=== PATIENT | female | born 1995 | race Two or more races ===

== ENCOUNTER 2018-08-12 13:50 | Observation (INO) | payer SELFPAY ==
[~2018-08-12] VITALS: Ht 157.5 cm; Wt 67.1 kg
[2018-08-12] MEDS ORDERED: PREN-96 PO (14:40)
[2018-08-12] MEDS ORDERED: FERR-20 PO (14:40)
[2018-08-12] MEDS ORDERED: LACTATED RINGER'S 1,000 ML IV SCH (15:03)
[2018-08-12] MEDS: TERBUTALINE SULFATE 1 MG/ML 1ML VIAL SC PRN ×2 (15:33→16:53)
[2018-08-12] MEDS ORDERED: LACTATED RINGER'S 1,000 ML IV ONE (15:45)
[2018-08-12 17:05] LABS: Alcohol, Urine < 3.0 mg/dL (0-5); Amphetamine Screen, Urine NEGATIVE (NEGATIVE); Barbiturate Scree,Urine NEGATIVE (NEGATIVE); Benzodiazephine Screen, Urine NEGATIVE (NEGATIVE); Cannabinoid Screen, Urine NEGATIVE (NEGATIVE); Cocaine Screen, Urine NEGATIVE (NEGATIVE); Opiate Scree,Urine NEGATIVE (NEGATIVE); Phencyclidine Screen, Urine NEGATIVE (NEGATIVE)
== END 2018-08-12 19:00 | disposition home or self-care (01) | DRG 833 ==
LOC: LDRP 13:50
PROVIDERS: ADMIT Specialist; ATTEND Specialist
DX: O26.892 Other specified pregnancy related conditions, second trimester (principal); N89.8 Other specified noninflammatory disorders of vagina; Z3A.27 27 weeks gestation of pregnancy
CPT/HCPCS: 59025; 76815; 80307; 81002; 96372; G0378; J3105; 96361

== ENCOUNTER 2018-08-26 10:30 | Observation (INO) | payer SELFPAY ==
[~2018-08-26 10:30] MED LIST: FERR-20 PO; PREN-96 PO
[2018-08-26] MEDS ORDERED: NIF10C GT (11:20)
== END 2018-08-26 11:25 | disposition home or self-care (01) | DRG 833 ==
LOC: LDRP 10:30
PROVIDERS: ADMIT Specialist; ATTEND Specialist
DX: O60.03 Preterm labor without delivery, third trimester (principal); Z3A.29 29 weeks gestation of pregnancy
CPT/HCPCS: 59025; 81002; G0378

== ENCOUNTER 2018-09-02 10:30 | Observation (INO) | payer OTHER ==
[~2018-09-02 10:30] MED LIST changes: +NIF10C GT
== END 2018-09-02 11:35 | disposition home or self-care (01) | DRG 833 ==
LOC: LDRP 10:30
PROVIDERS: ADMIT Specialist; ATTEND Specialist
DX: O60.03 Preterm labor without delivery, third trimester (principal); Z3A.30 30 weeks gestation of pregnancy
CPT/HCPCS: 59025; 81002; G0378

== ENCOUNTER 2018-09-09 10:30 | Observation (INO) | payer MEDICAID, OTHER | END 2018-09-09 11:25 | disposition home or self-care (01) | DRG 563 | LOC: LDRP 10:30 | PROVIDERS: ADMIT Obstetrics & Gynecology; ATTEND Obstetrics & Gynecology | DX: O60.03 Preterm labor without delivery, third trimester (principal); Z3A.31 31 weeks gestation of pregnancy | CPT/HCPCS: 59025; 81002; G0378 ==

== ENCOUNTER 2018-09-15 11:50 | Observation (INO) | payer MEDICAID | END 2018-09-15 12:25 | disposition home or self-care (01) | DRG 563 | LOC: LDRP 11:50 | PROVIDERS: ADMIT Specialist; ATTEND Specialist | DX: O60.03 Preterm labor without delivery, third trimester (principal); Z3A.32 32 weeks gestation of pregnancy | CPT/HCPCS: 59025; 81002; G0378 ==

== ENCOUNTER 2018-09-22 10:35 | Observation (INO) | payer MEDICAID ==
[~2018-09-22] VITALS: Ht 157.5 cm; Wt 67.1 kg
[2018-09-22] MEDS ORDERED: TERBUTALINE SULFATE 1 MG/ML 1ML VIAL SC ONE (11:19)
[2018-09-23] MEDS ORDERED: TERBUTALINE SULFATE 1 MG/ML 1ML VIAL SC ONE (10:00)
== END 2018-09-22 13:05 | disposition home or self-care (01) | DRG 563 ==
LOC: LDRP 10:35
PROVIDERS: ADMIT Obstetrics & Gynecology; ATTEND Obstetrics & Gynecology
DX: O60.03 Preterm labor without delivery, third trimester (principal); O26.893 Other specified pregnancy related conditions, third trimester; R42 Dizziness and giddiness; R51 Headache; Z3A.33 33 weeks gestation of pregnancy
CPT/HCPCS: 59025; 81002; 96372; G0378; J3105

== ENCOUNTER 2023-04-12 20:15 | Emergency (ER) | payer MEDICAID ==
[~2023-04-12] VITALS: Ht 157.5 cm; Wt 72.9 kg
[~2023-04-12 20:15] MED LIST changes: -FERR-20 PO; +FERR325T24 PO
[2023-04-12 20:56] LABS: Urine Bacteria NONE SEEN /hpf (None Seen); Urine Blood Negative /uL (Negative); Urine Mucus FEW (None Seen); Urine Specific Gravity 1.027 (1.001-1.035); Urine WBC 2 /hpf (0 - 5)
[2023-04-12 21:35] LABS: Basophils # (auto) 0.1 10 ^3/uL (0-0.2); Eosinophils # (auto) 0.2 10 ^3/uL (0-0.8); Eosinophils % (auto) 1.3 % (0.0-7.0); Hemoglobin 11.9 g/dL (12.2-16.2); Lymphocytes # (auto) 4.1 10 ^3/uL (0.4-5.4); Lymphocytes % (auto) 32.7 % (10.0-50.0); Mean Corpuscular Hemoglobin 27.4 pg (28.0-32.0); Mean Corpuscular Volume 82.9 fL (80.0-100.0); Monocytes # (auto) 0.7 10 ^3/uL (0-1.3); Monocytes % (auto) 5.3 % (0.0-12.0); Neutrophils # (auto) 7.4 10 ^3/uL (1.6-8.6); Neutrophils % (auto) 59.7 % (37.0-80.0); Nucleated Red Blood Cells % 0.1 %; Red Blood Cells 4.34 10^6/uL (4.0-5.20); Red Cell Distribution Width 15.7 % (11.8-14.3); White Blood Cell 12.4 10^3/uL (4.4-10.8)
[2023-04-12 21:48] LABS: Albumin 3.5 g/dL (3.4-5.0); Calcium 8.8 mg/dL (8.5-10.1); Potassium 3.8 mmol/L (3.5-5.1)
[2023-04-12 21:51] LABS: Bilirubin, Total 0.2 mg/dL (0.2-1.0); Total Protein 7.3 g/dL (6.4-8.2)
[2023-04-13 00:30] VITALS: BP 123/66
== END 2023-04-13 01:16 | disposition home or self-care (01) ==
LOC: ER 20:15
DX: O02.81 Inappropriate change in quantitative human chorionic gonadotropin (hCG) in early pregnancy (principal); O99.011 Anemia complicating pregnancy, first trimester; O99.111 Other diseases of the blood and blood-forming organs and certain disorders involving the immune mechanism complicating pregnancy, first trimester; D72.829 Elevated white blood cell count, unspecified; Z3A.01 Less than 8 weeks gestation of pregnancy
CPT/HCPCS: 36415; 80053; 81001; 81025; 84702; 85025

== ENCOUNTER → 2023-05-28 | Outpatient (CLI) | payer MEDICAID ==
[2023-05-28 10:46] LABS: Basophils # (auto) 0.1 10 ^3/uL (0-0.2); Basophils % (auto) 0.7 % (0.0-2.0); Eosinophils # (auto) 0.1 10 ^3/uL (0-0.8); Eosinophils % (auto) 0.9 % (0.0-7.0); Hematocrit 35.3 % (36.0-46.0); Hemoglobin 11.6 g/dL (12.2-16.2); Lymphocytes # (auto) 2.9 10 ^3/uL (0.4-5.4); Lymphocytes % (auto) 35.4 % (10.0-50.0); Mean Corpuscular Hemoglobin 27.9 pg (28.0-32.0); Mean Corpuscular Hgb Conc. 32.8 g/dL (32.0-36.0); Monocytes # (auto) 0.6 10 ^3/uL (0-1.3); Monocytes % (auto) 7.5 % (0.0-12.0); Neutrophils # (auto) 4.5 10 ^3/uL (1.6-8.6); Neutrophils % (auto) 55.5 % (37.0-80.0); Red Blood Cells 4.15 10^6/uL (4.0-5.20); Red Cell Distribution Width 15.3 % (11.8-14.3); White Blood Cell 8.2 10^3/uL (4.4-10.8)
[2023-05-28 11:51] LABS: Alcohol, Urine < 3.0 mg/dL (0-10); Barbiturate Scree,Urine NEGATIVE (NEGATIVE); Benzodiazephine Screen, Urine NEGATIVE (NEGATIVE); Cannabinoid Screen, Urine NEGATIVE (NEGATIVE); Cocaine Screen, Urine NEGATIVE (NEGATIVE); Opiate Scree,Urine NEGATIVE (NEGATIVE); Phencyclidine Screen, Urine NEGATIVE (NEGATIVE)
[2023-05-28 12:00] LABS: Amphetamine Screen, Urine NEGATIVE (NEGATIVE)
[2023-05-29 08:06] LABS: RPR Non Reactive (Non Reactive)
== END | disposition home or self-care (01) ==
LOC: LAB 10:09
PROVIDERS: ATTEND Obstetrics & Gynecology
DX: Z11.3 Encounter for screening for infections with a predominantly sexual mode of transmission (principal)
CPT/HCPCS: 36415; 80307; 83036; 84144; 84702; 85025; 86592; 86703; 86762; 86850; 86900; 86901; 87086; 87340

== ENCOUNTER 2023-07-04 11:06 | Emergency (ER) | payer MEDICAID ==
[2023-07-04 11:58] VITALS: BP 93/61; PULSE 86; RESP 18; TEMP 98; O2SAT 97
[2023-07-04] MEDS ORDERED: ACET-1080 PO (13:38)
[2023-07-04] MEDS ORDERED: TRIA0.02 TOP (13:38)
== END 2023-07-04 13:42 | disposition home or self-care (01) ==
LOC: ER 11:06
DX: O26.892 Other specified pregnancy related conditions, second trimester (principal); M72.2 Plantar fascial fibromatosis; Z3A.15 15 weeks gestation of pregnancy; Z79.1 Long term (current) use of non-steroidal anti-inflammatories (NSAID); Z79.899 Other long term (current) drug therapy
CPT/HCPCS: 93971

== ENCOUNTER 2023-10-06 20:32 | Observation (INO) | payer MEDICAID ==
[~2023-10-06 20:32] MED LIST changes: +ACET-1080 PO; +TRIA0.02 TOP
[2023-10-06] MEDS ORDERED: NIFEdipine 10 MG CAP PO ONE (22:00)
== END 2023-10-07 00:05 | disposition home or self-care (01) ==
LOC: LDRP 20:32
PROVIDERS: ADMIT Obstetrics & Gynecology; ATTEND Obstetrics & Gynecology
DX: O60.03 Preterm labor without delivery, third trimester (principal); O62.9 Abnormality of forces of labor, unspecified; O26.893 Other specified pregnancy related conditions, third trimester; R10.30 Lower abdominal pain, unspecified; Z3A.29 29 weeks gestation of pregnancy
CPT/HCPCS: 59025; 76815; 81002; 94760; G0378

== ENCOUNTER 2023-10-24 22:48 | Observation (INO) | payer MEDICAID ==
[~2023-10-24] VITALS: Ht 157.5 cm; Wt 79.4 kg
== END 2023-10-25 00:09 | disposition home or self-care (01) ==
LOC: LDRP 22:48
PROVIDERS: ADMIT Obstetrics & Gynecology; ATTEND Obstetrics & Gynecology
DX: O62.9 Abnormality of forces of labor, unspecified (principal); Z3A.31 31 weeks gestation of pregnancy
CPT/HCPCS: 59025; 81002; 82962; 94760; G0378

== ENCOUNTER 2023-11-05 08:57 | Observation (INO) | payer MEDICAID | END 2023-11-19 13:32 | disposition home or self-care (01) | LOC: LDRP 11-19 11:38 → UNDOADMOB 11-19 11:38 → LDRP 11-19 11:41 → UNDODISOB 11-19 13:32 | PROVIDERS: ADMIT Obstetrics & Gynecology; ATTEND Obstetrics & Gynecology | DX: O24.419 Gestational diabetes mellitus in pregnancy, unspecified control (principal); Z3A.35 35 weeks gestation of pregnancy | CPT/HCPCS: 59025; 76818; 81002; 82948; 82962; 94760; G0378 ==

== ENCOUNTER 2023-11-26 10:22 | Observation (INO) | payer MEDICAID ==
[2023-11-26 13:06] LABS: Urine Bacteria FEW /hpf (None Seen); Urine Blood Negative /uL (Negative); Urine Clarity HAZY (Clear); Urine Mucus FEW (None Seen); Urine Protein, UAD Negative (Negative); Urine Specific Gravity 1.015 (1.001-1.035); Urine Urobilinogen Normal (Negative); Urine WBC 1 /hpf (0 - 5); Urine pH 6.5 (5.0-8.0)
[2023-11-26 13:12] LABS: Urine Color Straw (Yellow)
[2023-11-26 13:18] LABS: Fern Testing Negative
== END 2023-11-26 13:41 | disposition home or self-care (01) ==
LOC: LDRP 10:22
PROVIDERS: ADMIT Obstetrics & Gynecology; ATTEND Obstetrics & Gynecology
DX: O24.419 Gestational diabetes mellitus in pregnancy, unspecified control (principal); O62.9 Abnormality of forces of labor, unspecified; O42.913 Preterm premature rupture of membranes, unspecified as to length of time between rupture and onset of labor, third trimester; O26.893 Other specified pregnancy related conditions, third trimester; R51.9 Headache, unspecified; Z3A.36 36 weeks gestation of pregnancy
CPT/HCPCS: 59025; 76818; 81001; 81002; 82948; 82962; 84112; 94760; G0378; Q0114

== ENCOUNTER 2023-11-28 11:20 | Observation (INO) | payer MEDICAID ==
[~2023-11-28] VITALS: Ht 157.5 cm; Wt 68.0 kg
[2023-11-28] MEDS ORDERED: LACTATED RINGER'S 1,000 ML IV SCH (13:00)
[2023-11-28] MEDS ORDERED: LACTATED RINGER'S 1,000 ML IV ONE (13:00)
== END 2023-11-28 15:56 | disposition home or self-care (01) ==
LOC: LDRP 11:20 → UNDOADMOB 11:20 → LDRP 11:31 → UNDODISOB 15:56
PROVIDERS: ADMIT Obstetrics & Gynecology; ATTEND Obstetrics & Gynecology
DX: O24.419 Gestational diabetes mellitus in pregnancy, unspecified control (principal); O42.913 Preterm premature rupture of membranes, unspecified as to length of time between rupture and onset of labor, third trimester; O62.9 Abnormality of forces of labor, unspecified; O26.893 Other specified pregnancy related conditions, third trimester; R51.9 Headache, unspecified; H53.8 Other visual disturbances; Z3A.36 36 weeks gestation of pregnancy
CPT/HCPCS: 59025; 76818; 81002; 82948; 82962; 94760; 96360; 96361; G0378

== ENCOUNTER 2023-12-03 14:03 | Observation (INO) | payer MEDICAID ==
[2023-12-10 12:13] LABS: Fern Testing Negative
== END 2023-12-10 12:45 | disposition home or self-care (01) ==
LOC: UNDOADMOB 12-10 10:05 → LDRP 12-10 10:05
PROVIDERS: ADMIT Obstetrics & Gynecology; ATTEND Obstetrics & Gynecology
DX: O24.419 Gestational diabetes mellitus in pregnancy, unspecified control (principal); O62.9 Abnormality of forces of labor, unspecified; O26.893 Other specified pregnancy related conditions, third trimester; M53.3 Sacrococcygeal disorders, not elsewhere classified; Z3A.38 38 weeks gestation of pregnancy; W19.XXXA Unspecified fall, initial encounter; Y93.89 Activity, other specified; Y92.89 Other specified places as the place of occurrence of the external cause; Y99.8 Other external cause status
CPT/HCPCS: 76818; 84112; G0378; Q0114; 59025; 81002; 82948; 94760

== ENCOUNTER 2023-12-07 21:57 | Observation (INO) | payer MEDICAID ==
[~2023-12-07] VITALS: Ht 157.5 cm; Wt 86.2 kg
[2023-12-07 23:23] LABS: Urine Bacteria MANY /hpf (None Seen); Urine Blood Negative /uL (Negative); Urine Clarity HAZY (Clear); Urine Color Yellow (Yellow); Urine Mucus FEW (None Seen); Urine Protein, UAD TRACE (Negative); Urine Specific Gravity 1.022 (1.001-1.035); Urine Urobilinogen Normal (Negative); Urine WBC 49 /hpf (0 - 5); Urine pH 6.5 (5.0-8.0)
[2023-12-08] MEDS: ACETAMINOPHEN 325 MG TAB PO PRN (00:01)
== END 2023-12-08 00:52 | disposition left against medical advice (07) ==
LOC: LDRP 21:57
PROVIDERS: ADMIT Obstetrics & Gynecology; ATTEND Obstetrics & Gynecology
DX: O23.43 Unspecified infection of urinary tract in pregnancy, third trimester (principal); O24.419 Gestational diabetes mellitus in pregnancy, unspecified control; O34.219 Maternal care for unspecified type scar from previous cesarean delivery; O99.891 Other specified diseases and conditions complicating pregnancy; M53.3 Sacrococcygeal disorders, not elsewhere classified; Z3A.38 38 weeks gestation of pregnancy; W19.XXXA Unspecified fall, initial encounter; Y93.89 Activity, other specified; Y92.89 Other specified places as the place of occurrence of the external cause; Y99.8 Other external cause status
CPT/HCPCS: 59025; 76818; 81001; 81002; 82948; 82962; G0378